=== PATIENT | female | born 1985 | race Caucasian/White ===

== ENCOUNTER 2017-02-01 13:33 | Emergency (ER) | payer BC ==
[~2017-02-01 13:33] MED LIST: DEXAMETHASONE4 MG PO; IBUPROFEN800 M1 PO; NOLVADEX20 MG PO; PRENATAL VITAM1 EAC5 PO; REGLAN10 MG PO; TYLENOL EXTRA500 MG PO; VALTREX500 M1; ZITHROMAX250MG Z-PAK PO; ZOFRAN4 MG PO
[2017-02-01] MEDS ORDERED: TAMOXIFEN CITRA10 M1 PO (14:48)
[2017-02-01] MEDS ORDERED: TAMIFLU30 M1 (14:48)
== END 2017-02-01 16:41 ==
LOC: EDMED 13:33
DX: G43.909 Migraine, unspecified, not intractable, without status migrainosus (principal); J11.1 Influenza due to unidentified influenza virus with other respiratory manifestations; Z85.3 Personal history of malignant neoplasm of breast; Z90.13 Acquired absence of bilateral breasts and nipples
CPT/HCPCS: J0780; J1200; J1885; J7030